=== PATIENT | female | born 1985 | race African-American/Black ===

== ENCOUNTER 2022-12-18 11:45 | Inpatient (IN) | payer OTHER ==
[2022-12-18] MEDS ORDERED: BETAMET ACET/BETAMET NA PH 30 MG/5 ML VIAL IM ONE (13:20)
[2022-12-18] MEDS ORDERED: MAGNESIUM 4GM/H20 - 4 GM/100 ML IVPB IVPB ONE ×2 (13:31→14:45)
[2022-12-18] MEDS: DEXTROSE 5%-LACTATED RINGERS 1,000 ML IV SCH (13:50)
[2022-12-18] MEDS ORDERED: MAGNESIUM SULFATE 20GM/500ML - 20 GM/500 ML INFUS.BAG ONE (14:32)
[2022-12-18] MEDS: MAGNESIUM SULFATE 20GM/500ML - 20 GM/500 ML INFUS.BAG IVPB SCH (15:00)
[2022-12-18 15:27] VITALS: BMI 32.2
[2022-12-18 16:43] LABS: BASO % 0.1 % (0-2.0); EOS % 0.1 % (0-4.5); HEMATOCRIT 31.8 % (32.4-45.2); HEMOGLOBIN 10.8 GM/dL (10.7-15.3); MCH 31.6 pg (25.7-33.7); MCHC 33.8 g/dl (32.0-36.0); MEAN CELL VOLUME 93.6 fl (80-96); MEAN PLT VOLUME 10.4 fl (7.5-11.1); MONO % 4.7 % (3.8-10.2); NEUT % 89.1 % (42.8-82.8); PLATELET COUNT 174 10^3/uL (134-434); RDW 13.6 % (11.6-15.6); WHITE BLOOD COUNT 11.1 K/mm3 (4.0-10.0)
[2022-12-18 16:50] LABS: PROTHROMBIN TIME (PATIENT) 11.6 SEC (9.7-13.0)
[2022-12-18 16:53] LABS: ACTIVATED PTT 28.6 SECONDS (25.2-36.5)
[2022-12-18 17:03] LABS: POTASSIUM 3.9 mmol/L (3.5-5.1)
[2022-12-18 17:04] LABS: CALCIUM 8.6 mg/dL (8.5-10.1)
[2022-12-18 17:05] LABS: BLOOD UREA NITROGEN 8.6 mg/dL (7-18)
[2022-12-18 17:08] LABS: CREATININE 0.5 mg/dL (0.55-1.3)
[2022-12-18] MEDS ORDERED: AZITHROMYCIN 500 MG TABLET PO ONE (19:00)
[2022-12-18] MEDS ORDERED: DOCUSATE SODIUM 100 MG CAPSULE (FP) PO PRN (19:03)
[2022-12-18] MEDS ORDERED: AMPICILLIN SODIUM 1 GM VIAL ONE ×2 (19:12→22:53)
[2022-12-18] MEDS: AMPICILLIN - 1 GM in SODIUM CHLORIDE 100 ML IVPB SCH ×2 (19:15→23:00)
[2022-12-18] MEDS ORDERED: FERROUS SO4 325 MG TABLET (FP) ONE (22:21)
[2022-12-18] MEDS: FERROUS SO4 325 MG TABLET (FP) PO SCH (22:25)
[2022-12-19] MEDS ORDERED: MAGNESIUM SULFATE 20GM/500ML - 20 GM/500 ML INFUS.BAG ONE ×2 (01:00→11:33)
[2022-12-19] MEDS: MAGNESIUM SULFATE 20GM/500ML - 20 GM/500 ML INFUS.BAG IVPB SCH ×2 (01:00→11:34)
[2022-12-19] MEDS ORDERED: AMPICILLIN SODIUM 1 GM VIAL ONE ×4 (03:08→14:30)
[2022-12-19] MEDS: AMPICILLIN - 1 GM in SODIUM CHLORIDE 100 ML IVPB SCH ×6 (03:10→22:15)
[2022-12-19] MEDS: DEXTROSE 5%-LACTATED RINGERS 1,000 ML IV SCH ×2 (05:00→15:10)
[2022-12-19] MEDS: FERROUS SO4 325 MG TABLET (FP) PO SCH ×2 (09:23→22:15)
[2022-12-19] MEDS ORDERED: BETAMET ACET/BETAMET NA PH 30 MG/5 ML VIAL IM ONE (13:20)
[2022-12-19] MEDS: DOCUSATE SODIUM 100 MG CAPSULE (FP) PO SCH (22:15)
[2022-12-20] MEDS: AMPICILLIN - 1 GM in SODIUM CHLORIDE 100 ML IVPB SCH ×6 (02:17→22:45)
[2022-12-20] MEDS: DOCUSATE SODIUM 100 MG CAPSULE (FP) PO SCH ×3 (06:06→21:45)
[2022-12-20] MEDS: PRENATAL VITAMINS W/ FOLIC ACID TABLET (FP) PO SCH (09:52)
[2022-12-20] MEDS: FERROUS SO4 325 MG TABLET (FP) PO SCH ×2 (09:52→21:45)
[2022-12-20] MEDS: DEXTROSE 5%-LACTATED RINGERS 1,000 ML IV SCH (16:53)
[2022-12-21] MEDS: AMPICILLIN - 1 GM in SODIUM CHLORIDE 100 ML IVPB SCH ×4 (02:45→16:30)
[2022-12-21] MEDS: DOCUSATE SODIUM 100 MG CAPSULE (FP) PO SCH ×3 (06:12→22:15)
[2022-12-21] MEDS: PRENATAL VITAMINS W/ FOLIC ACID TABLET (FP) PO SCH (10:46)
[2022-12-21] MEDS: FERROUS SO4 325 MG TABLET (FP) PO SCH ×2 (10:46→22:15)
[2022-12-21 13:47] LABS: POC NITRAZINE NEG
[2022-12-21] MEDS: NITROFURANTOIN MACROCRYSTAL 50 MG CAPSULE (FP) PO SCH (20:05)
[2022-12-22] MEDS: NITROFURANTOIN MACROCRYSTAL 50 MG CAPSULE (FP) PO SCH ×5 (01:37→23:41)
[2022-12-22] MEDS: DOCUSATE SODIUM 100 MG CAPSULE (FP) PO SCH ×3 (05:29→21:11)
[2022-12-22] MEDS: FERROUS SO4 325 MG TABLET (FP) PO SCH ×2 (10:16→21:11)
[2022-12-22] MEDS: PRENATAL VITAMINS W/ FOLIC ACID TABLET (FP) PO SCH (10:16)
[2022-12-22] MEDS ORDERED: NITROFURANTOIN MACROCRYSTAL 50 MG CAPSULE (FP) PO SCH (18:45)
[2022-12-23] MEDS: DOCUSATE SODIUM 100 MG CAPSULE (FP) PO SCH ×3 (05:44→22:03)
[2022-12-23] MEDS: NITROFURANTOIN MACROCRYSTAL 50 MG CAPSULE (FP) PO SCH ×4 (05:45→23:32)
[2022-12-23] MEDS: FERROUS SO4 325 MG TABLET (FP) PO SCH ×2 (10:05→22:02)
[2022-12-23] MEDS: PRENATAL VITAMINS W/ FOLIC ACID TABLET (FP) PO SCH (10:05)
[2022-12-24] MEDS: NITROFURANTOIN MACROCRYSTAL 50 MG CAPSULE (FP) PO SCH ×3 (06:22→18:38)
[2022-12-24] MEDS: DOCUSATE SODIUM 100 MG CAPSULE (FP) PO SCH ×3 (06:22→21:28)
[2022-12-24 06:45] LABS: BASO % 0.2 % (0-2.0); HEMATOCRIT 32.5 % (32.4-45.2); HEMOGLOBIN 11.1 GM/dL (10.7-15.3); LYMPH % 13.8 % (8-40); MCH 32.4 pg (25.7-33.7); MCHC 34.3 g/dl (32.0-36.0); MEAN CELL VOLUME 94.5 fl (80-96); MEAN PLT VOLUME 9.8 fl (7.5-11.1); MONO % 8.3 % (3.8-10.2); NEUT % 76.7 % (42.8-82.8); PLATELET COUNT 186 10^3/uL (134-434); RBC 3.44 M/mm3 (3.60-5.2); RDW 13.8 % (11.6-15.6); WHITE BLOOD COUNT 8.9 K/mm3 (4.0-10.0)
[2022-12-24 06:59] LABS: ALBUMIN 2.6 g/dl (3.4-5.0); BLOOD UREA NITROGEN 7.9 mg/dL (7-18); CALCIUM 8.6 mg/dL (8.5-10.1)
[2022-12-24 07:02] LABS: CREATININE 0.6 mg/dL (0.55-1.3)
[2022-12-24 07:04] LABS: BILIRUBIN,TOTAL 1.6 mg/dL (0.2-1); TOT PROT 6.1 g/dl (6.4-8.2)
[2022-12-24] MEDS: PRENATAL VITAMINS W/ FOLIC ACID TABLET (FP) PO SCH (09:37)
[2022-12-24] MEDS: FERROUS SO4 325 MG TABLET (FP) PO SCH ×2 (09:37→21:28)
[2022-12-24] MEDS ORDERED: SODIUM CHLORIDE 1,000 ML IV STA (18:22)
[2022-12-24] MEDS ORDERED: DEXTROSE 5%-LACTATED RINGERS 1,000 ML IV SCH (18:30)
[2022-12-25] MEDS: NITROFURANTOIN MACROCRYSTAL 50 MG CAPSULE (FP) PO SCH ×4 (01:14→17:53)
[2022-12-25] MEDS: DOCUSATE SODIUM 100 MG CAPSULE (FP) PO SCH ×3 (06:18→22:00)
[2022-12-25] MEDS: FERROUS SO4 325 MG TABLET (FP) PO SCH ×2 (08:59→22:00)
[2022-12-25] MEDS: PRENATAL VITAMINS W/ FOLIC ACID TABLET (FP) PO SCH (09:00)
[2022-12-25 17:19] VITALS: RESP 18
[2022-12-25] MEDS ORDERED: SODIUM CHLORIDE 500 ML IV STA (18:37)
[2022-12-25] MEDS ORDERED: DEXTROSE 5%-LACTATED RINGERS 1,000 ML IV SCH (18:45)
[2022-12-25] MEDS ORDERED: ONDANSETRON 4 MG/2 ML VIAL IVPUSH PRN (20:58)
[2022-12-25] MEDS ORDERED: morphine SULFATE/PF 1 MG/2 ML (2cc Syringe - QUVA) ONE (21:03)
[2022-12-25] MEDS ORDERED: FENTANYL CITRATE/PF 50 MCG/ML VIAL ONE ×2 (21:03→23:31)
[2022-12-25] MEDS ORDERED: ceFAZolin SODIUM 1 GM VIAL ONE (21:19)
[2022-12-25] MEDS ORDERED: METOCLOPRAMIDE HCL INJECTION 10 MG/2 ML VIAL ONE (21:21)
[2022-12-25] MEDS ORDERED: ONDANSETRON 4 MG/2 ML VIAL ONE (21:21)
[2022-12-25] MEDS ORDERED: PHENYLEPHRINE HCL 10 MG/1 ML SINGLE DOSE VIAL ONE (21:23)
[2022-12-25] MEDS ORDERED: OXYTOCIN 10 UNITS/ML VIAL ONE (21:54)
[2022-12-25 22:30] LABS: CORD BASE EXCESS -1.1 mmol/L (0-2); CORD HCO3 26.1 mmHg (20-29); CORD PCO2 53.1 mmHg (30-78); CORD pH 7.309 (7.14-7.44)
[2022-12-25 22:33] LABS: CORD PCO2 68.5 mmHg (30-78); CORD pH 7.162 (7.14-7.44)
[2022-12-25] MEDS ORDERED: MIDAZOLAM HCL 2 MG/2 ML SINGLE DOSE VIAL ONE ×2 (22:53→23:31)
[2022-12-25] MEDS ORDERED: KETAMINE HCL 500 MG/10 ML VIAL ONE (23:29)
[2022-12-26] MEDS ORDERED: FENTANYL CITRATE/PF 50 MCG/ML VIAL ONE
[2022-12-26] MEDS ORDERED: OXYTOCIN 20 UNITS in 0.9% NS 20 UNIT/1,000 ML INFUS.BAG IV ONE (00:23)
[2022-12-26] MEDS: OXYTOCIN 20 UNITS in 0.9% NS 20 UNIT/1,000 ML INFUS.BAG IV SCH ×2 (00:30→06:30)
[2022-12-26] MEDS ORDERED: ACETAMINOPHEN 325 MG TABLET (FP) PO PRN (00:34)
[2022-12-26] MEDS: DOCUSATE SODIUM 100 MG CAPSULE (FP) PO SCH ×3 (06:48→21:39)
[2022-12-26] MEDS: IBUPROFEN 600 MG TABLET (FP) PO PRN ×3 (08:39→21:41)
[2022-12-26] MEDS: SIMETHICONE 80 MG TAB.CHEW (FP) PO PRN ×2 (08:39→21:39)
[2022-12-26] MEDS: PRENATAL VITAMINS W/ FOLIC ACID TABLET (FP) PO SCH ×2 (09:55→10:30)
[2022-12-26] MEDS: FERROUS SO4 325 MG TABLET (FP) PO SCH ×2 (09:55→21:40)
[2022-12-26] MEDS ORDERED: FERROUS SO4 325 MG TABLET (FP) PO SCH (10:00)
[2022-12-26] MEDS: ACETAMINOPHEN 1000 MG/100 ML BAG IVPB PRN (10:02)
[2022-12-26] MEDS: SENNOSIDES/DOCUSATE COMBO (SENNA PLUS) TABLET (UD) PO SCH ×2 (10:02→21:39)
[2022-12-26 15:32] LABS: BASO % 0.2 % (0-2.0); EOS % 0.4 % (0-4.5); HEMATOCRIT 25.4 % (32.4-45.2); HEMOGLOBIN 8.4 GM/dL (10.7-15.3); MCH 31.6 pg (25.7-33.7); MCHC 32.9 g/dl (32.0-36.0); MEAN CELL VOLUME 96.2 fl (80-96); MEAN PLT VOLUME 9.3 fl (7.5-11.1); MONO % 6.1 % (3.8-10.2); NEUT % 88.3 % (42.8-82.8); PLATELET COUNT 147 10^3/uL (134-434); RBC 2.65 M/mm3 (3.60-5.2); RDW 14.5 % (11.6-15.6); WHITE BLOOD COUNT 11.6 K/mm3 (4.0-10.0)
[2022-12-27] MEDS: OXYTOCIN 20 UNITS in 0.9% NS 20 UNIT/1,000 ML INFUS.BAG IV SCH (02:02)
[2022-12-27] MEDS: oxyCODONE HCL 5 MG TABLET PO PRN ×3 (03:28→21:20)
[2022-12-27] MEDS: SIMETHICONE 80 MG TAB.CHEW (FP) PO PRN ×6 (03:29→21:20)
[2022-12-27] MEDS: DOCUSATE SODIUM 100 MG CAPSULE (FP) PO SCH ×4 (06:34→21:19)
[2022-12-27] MEDS: IBUPROFEN 600 MG TABLET (FP) PO PRN ×3 (06:49→17:25)
[2022-12-27] MEDS: ACETAMINOPHEN 1000 MG/100 ML BAG IVPB PRN (07:47)
[2022-12-27] MEDS: SENNOSIDES/DOCUSATE COMBO (SENNA PLUS) TABLET (UD) PO SCH ×2 (09:55→21:19)
[2022-12-27] MEDS: FERROUS SO4 325 MG TABLET (FP) PO SCH ×2 (09:55→21:19)
[2022-12-27] MEDS: PRENATAL VITAMINS W/ FOLIC ACID TABLET (FP) PO SCH ×2 (09:55→11:14)
[2022-12-27 13:29] LABS: BASO % 0.1 % (0-2.0); EOS % 0.2 % (0-4.5); HEMATOCRIT 27.8 % (32.4-45.2); LYMPH % 4.2 % (8-40); MCH 31.4 pg (25.7-33.7); MCHC 32.3 g/dl (32.0-36.0); MEAN CELL VOLUME 97.2 fl (80-96); MONO % 6.2 % (3.8-10.2); NEUT % 89.3 % (42.8-82.8); PLATELET COUNT 212 10^3/uL (134-434); RBC 2.87 M/mm3 (3.60-5.2); RDW 15.1 % (11.6-15.6); WHITE BLOOD COUNT 18.2 K/mm3 (4.0-10.0)
[2022-12-27 13:46] LABS: POTASSIUM 3.9 mmol/L (3.5-5.1)
[2022-12-27 13:48] LABS: ALBUMIN 2.3 g/dl (3.4-5.0); BLOOD UREA NITROGEN 12.3 mg/dL (7-18); CALCIUM 8.7 mg/dL (8.5-10.1)
[2022-12-27 13:51] LABS: CREATININE 0.6 mg/dL (0.55-1.3)
[2022-12-27 13:53] LABS: BILIRUBIN,TOTAL 1.4 mg/dL (0.2-1); TOT PROT 5.8 g/dl (6.4-8.2)
[2022-12-27] MEDS: CEPHALEXIN MONOHYDRATE 500 MG CAPSULE (UD) PO SCH ×2 (16:39→22:02)
[2022-12-28] MEDS: DOCUSATE SODIUM 100 MG CAPSULE (FP) PO SCH ×3 (06:07→21:03)
[2022-12-28] MEDS: IBUPROFEN 600 MG TABLET (FP) PO PRN ×2 (08:48→12:14)
[2022-12-28] MEDS: CEPHALEXIN MONOHYDRATE 500 MG CAPSULE (UD) PO SCH ×2 (09:19→21:02)
[2022-12-28] MEDS: FERROUS SO4 325 MG TABLET (FP) PO SCH ×2 (09:19→21:03)
[2022-12-28] MEDS: SENNOSIDES/DOCUSATE COMBO (SENNA PLUS) TABLET (UD) PO SCH ×2 (09:19→21:03)
[2022-12-28] MEDS: PRENATAL VITAMINS W/ FOLIC ACID TABLET (FP) PO SCH ×2 (09:19)
[2022-12-28] MEDS: oxyCODONE HCL 5 MG TABLET PO PRN (20:53)
[2022-12-28] MEDS: SIMETHICONE 80 MG TAB.CHEW (FP) PO PRN (20:54)
[2022-12-28 22:29] VITALS: TEMP 99.4
[2022-12-29] MEDS: oxyCODONE HCL 5 MG TABLET PO PRN (03:15)
[2022-12-29] MEDS: SIMETHICONE 80 MG TAB.CHEW (FP) PO PRN ×2 (03:16→09:34)
[2022-12-29] MEDS: DOCUSATE SODIUM 100 MG CAPSULE (FP) PO SCH ×2 (06:04→15:25)
[2022-12-29] MEDS: IBUPROFEN 600 MG TABLET (FP) PO PRN ×2 (06:04→09:35)
[2022-12-29 07:52] LABS: BASO % 0.1 % (0-2.0); EOS % 0.3 % (0-4.5); HEMATOCRIT 24.8 % (32.4-45.2); LYMPH % 5.5 % (8-40); MCH 31.1 pg (25.7-33.7); MCHC 32.1 g/dl (32.0-36.0); MEAN CELL VOLUME 96.9 fl (80-96); MEAN PLT VOLUME 8.8 fl (7.5-11.1); MONO % 7.5 % (3.8-10.2); NEUT % 86.6 % (42.8-82.8); PLATELET COUNT 272 10^3/uL (134-434); RBC 2.56 M/mm3 (3.60-5.2); RDW 15.1 % (11.6-15.6); WHITE BLOOD COUNT 17.4 K/mm3 (4.0-10.0)
[2022-12-29] MEDS: CEPHALEXIN MONOHYDRATE 500 MG CAPSULE (UD) PO SCH (09:34)
[2022-12-29] MEDS: FERROUS SO4 325 MG TABLET (FP) PO SCH (09:34)
[2022-12-29] MEDS: PRENATAL VITAMINS W/ FOLIC ACID TABLET (FP) PO SCH ×2 (09:34→09:52)
[2022-12-29] MEDS: SENNOSIDES/DOCUSATE COMBO (SENNA PLUS) TABLET (UD) PO SCH (09:34)
[2022-12-29 09:47] VITALS: BP 138/64; PULSE 115
== END 2022-12-29 17:00 | disposition home or self-care (01) | DRG 786 ==
LOC: JDEL 11:45 → JLDR 12:45 → J3W 12-19 15:15 → JLDR 12-25 19:30 → J3W 12-26 01:35
PROVIDERS: ADMIT Obstetrics & Gynecology Maternal & Fetal Medicine; ATTEND Obstetrics & Gynecology Maternal & Fetal Medicine
PROC: 10D00Z1 Extraction of Products of Conception, Low, Open Approach (ICD-10-PCS; principal; 2022-12-25)
DX: O42.113 Preterm premature rupture of membranes, onset of labor more than 24 hours following rupture, third trimester (principal); U07.1 COVID-19; O10.92 Unspecified pre-existing hypertension complicating childbirth; O98.52 Other viral diseases complicating childbirth; O75.2 Pyrexia during labor, not elsewhere classified; O31 Complications specific to multiple gestation; O76 Abnormality in fetal heart rate and rhythm complicating labor and delivery; O99.824 Streptococcus B carrier state complicating childbirth; O69.81X0 Labor and delivery complicated by cord around neck, without compression, not applicable or unspecified; N73.6 Female pelvic peritoneal adhesions (postinfective); R82.71 Bacteriuria; Z3A.34 34 weeks gestation of pregnancy; Z37.0 Single live birth; Z87.59 Personal history of other complications of pregnancy, childbirth and the puerperium
CPT/HCPCS: 36415; 36600; 59025; 80048; 80053; 82803; 83986-QW; 85025; 85610; 85730; 86780; 86850; 86900; 86901; 87081; 87086; 87491; 87591; 88307-TC; 93005; 93010; 94010; 96372; C9803-CS; U0003; U0005